=== PATIENT | male | born 1950 | race Caucasian/White ===

== ENCOUNTER 2017-04-19 13:20 | Emergency (ER) | payer OTHER, BC ==
[~2017-04-19] VITALS: Ht 180.3 cm; Wt 119.1 kg
[~2017-04-19 13:20] MED LIST: ASPEC325 PO; ATEN-173 PO; CRS20 PO; FLNIN NAE; PRLSR20 PO; [UNRECOGNIZED DRUG - CODE] PO
[2017-04-19 13:29] VITALS: TEMP 39.1
[2017-04-19] MEDS ORDERED: ROSU40TA PO (14:00)
[2017-04-19] MEDS ORDERED: PRLSR20 PO (14:00)
[2017-04-19] MEDS ORDERED: HYDR25TA4 PO (14:00)
[2017-04-19] MEDS ORDERED: ATEN-173 PO (14:00)
[2017-04-19] MEDS ORDERED: LOSA1TAB PO (14:00)
[2017-04-19 14:43] LABS: BASO % 0.2 %; BASO ABS # 0.02 K/uL (0-0.2); COMPLETE YES; EOS % 0.6 %; HEMATOCRIT 40.2 % (42-52); IG% 0.5 %; LYMPH % 13.3 %; LYMPH ABS # 1.07 K/uL (1.2-3.4); MEAN CELL VOLUME 86.8 fL (80-100); MEAN CORPUSCULAR HGB CONC 34.6 g/dl (32-36); MEAN PLATELET VOLUME 11.3 fL (7.4-10.4); MONO % 10.9 %; NEUT % 74.5 %; PLATELET COUNT 134 K/uL (130-400); RED BLOOD COUNT 4.63 M/uL (4.7-6.1); WHITE BLOOD COUNT 8.06 K/uL (4.8-10.8)
[2017-04-19 14:52] LABS: BUN/CREATININE RATIO 17.2 (10-20); CALCIUM 8.9 mg/dl (8.5-10.1); CREATININE 1.12 mg/dl (0.60-1.40); PARTIAL THROMBOPLASTIN RATIO 1.1; POTASSIUM 2.8 mmol/L (3.5-5.1); PROTHROMBIN TIME (PATIENT) 10.8 SECONDS (9.0-12.0)
[2017-04-19 14:54] LABS: ALB/GLOB RATIO 0.8 (0.9-2)
--- NOTE | 2017-04-19 14:58 | DIAGNOSTIC IMAGING REPORT ---
CHEST ONE VIEW PORTABLE CLINICAL HISTORY: Sepsis NAUSEA, FEVER. COMPARISON STUDY: 09/19/2010 FINDINGS: The heart is mildly enlarged. There are low lung volumes with bronchovascular crowding at the lung bases. There is no lobar consolidation. There is no overt failure. There are no pleural effusions.[ IMPRESSION: 1. Mild cardiomegaly 2. Poor inspiration with mild hypoventilatory changes the lung bases 3. No evidence of focal pulmonary consolidation Electronically signed by: Christian Vargas M.D. 04/19/2017 2:56 PM Dictated Date/Time: 04/19/2017 2:56 PM
[2017-04-19 15:04] VITALS: Ht 180.3 cm; Wt 119.1 kg
[2017-04-19 15:16] VITALS: O2SAT 96
--- NOTE | 2017-04-19 15:25 | EMERGENCY ROOM VISIT NOTE ---
History Report prepared by Duane: Eulogio Lindsey Under the Supervision of: Dr. Maeve Stewart D.O. First contact with patient: 14:02 Chief Complaint: FLU LIKE SX Stated Complaint: NAUSEA,FEVER,COLD SYMPTOMS History of Present Illness The patient is a 66 year old male who presents to the Emergency Room with complaints of a constant fever for the past week. The patient states that he thinks that he has the flu, and he has not gotten a flu shot. The patient states that he has been having slight difficulty breathing due to the sickness, he feels "delusional", and he has been nauseous and vomiting. The patient denies any difficulty urinating or abdominal pain. The patient has a history of heart disease, and he has a stent in place. Source of History: patient Onset: a week ago Position: other (global) Quality: other (fever) Timing: constant Associated Symptoms: + SOB, + nausea, + vomiting, No abdominal pain, No urinary symptoms Review of Systems See HPI for pertinent positives & negatives. A total of 10 systems reviewed and were otherwise negative. Past Medical & Surgical Medical Problems: (1) Heart disease (2) HTN (hypertension) Family History Patient reports no known family medical history. Social History Smoking Status: Former Smoker Marital Status: Housing Status: lives with family Occupation Status: retired Current/Historical Medications Scheduled Atenolol (Tenormin), 25 MG PO BID Hydrochlorothiazide (Hctz), 25 MG PO DAILY Losartan Potassium (Cozaar), 25 MG PO DAILY Omeprazole (Prilosec), 20 MG PO DAILY Rosuvastatin Calcium (Crestor), 40 MG PO DAILY Allergies Coded Allergies: Fentanyl (Unverified Allergy, hives, swelling, 09/19/10) Physical Exam Vital Signs Date Time Temp Pulse Resp B/P (MAP) Pulse Ox O2 Delivery O2 Flow Rate FiO2 04/19/17 19:05 62 20 122/69 96 04/19/17 18:38 62 20 122/69 96 Room Air 04/19/17 18:00 61 16 112/70 97 Room Air 04/19/17 15:57 119/62 04/19/17 15:50 72 7 93 04/19/17 15:20 73 21 95 04/19/17 15:16 96 Room Air 04/19/17 14:50 78 10 04/19/17 14:20 75 13 04/19/17 13:56 79 04/19/17 13:29 39.1 87 20 121/71 93 Room Air Physical Exam HEENT: Head - normocephalic and atraumatic Pupils are equal, round, and reactive to light. Extraocular eye muscles are intact, and sclera are anicteric. Nose - moist nasal mucosa without discharge. Mouth - moist buccal mucosa. Oropharynx is nonerythematous and there is no tonsillar exudate or edema noted. Neck: Supple; no JVD, nuchal rigidity, cervical lymphadenopathy. Heart: Regular rate and rhythm. There is a normal S1 and S2 with no murmurs, clicks, or gallops appreciated. Lungs: Clear to auscultation bilaterally with no wheezes, rales, or rhonchi. Abdomen: Soft, completely nontender, nondistended, with good bowel sounds. There are no palpable pulsatile masses or hepatosplenomegaly. There is no guarding, rigidity, or rebound noted. Extremities: No evidence of cyanosis, clubbing, or edema. There are easily palpable peripheral pulses. Skin: Diaphoretic, warm with good turgor and no rashes. Medical Decision & Procedures ER Provider Diagnostic Interpretation: Radiology results as stated below per my review and the radiologist's interpretation: CHEST ONE VIEW PORTABLE CLINICAL HISTORY: Sepsis NAUSEA, FEVER. COMPARISON STUDY: 09/19/2010 FINDINGS: The heart is mildly enlarged. There are low lung volumes with bronchovascular crowding at the lung bases. There is no lobar consolidation. There is no overt failure. There are no pleural effusions.[ IMPRESSION: 1. Mild cardiomegaly 2. Poor inspiration with mild hypoventilatory changes the lung bases 3. No evidence of focal pulmonary consolidation Electronically signed by: Christian Vargas M.D. 04/19/2017 2:56 PM Dictated Date/Time: 04/19/2017 2:56 PM Laboratory Results 04/19/17 13:45 Red Blood Count 4.63, Mean Corpuscular Volume 86.8, Mean Corpuscular Hemoglobin 30.0, Mean Corpuscular Hemoglobin Concent 34.6, Mean Platelet Volume 11.3, Neutrophils (%) (Auto) 74.5, Lymphocytes (%) (Auto) 13.3, Monocytes (%) (Auto) 10.9, Eosinophils (%) (Auto) 0.6, Basophils (%) (Auto) 0.2, Neutrophils # (Auto ) 6.00, Lymphocytes # (Auto) 1.07, Monocytes # (Auto) 0.88, Eosinophils # (Auto ) 0.05, Basophils # (Auto) 0.02 04/19/17 13:45 Test 04/19/17 13:45 04/19/17 14:45 04/19/17 14:50 04/19/17 16:40 White Blood Count 8.06 K/uL (4.8-10.8) Red Blood Count 4.63 M/uL (4.7-6.1) Hemoglobin 13.9 g/dL (14.0-18.0) Hematocrit 40.2 % (42-52) Mean Corpuscular Volume 86.8 fL (80-100) Mean Corpuscular Hemoglobin 30.0 pg (25-34) Mean Corpuscular Hemoglobin Concent 34.6 g/dl (32-36) Platelet Count 134 K/uL (130-400) Mean Platelet Volume 11.3 fL (7.4-10.4) Neutrophils (%) (Auto) 74.5 % Lymphocytes (%) (Auto) 13.3 % Monocytes (%) (Auto) 10.9 % Eosinophils (%) (Auto) 0.6 % Basophils (%) (Auto) 0.2 % Neutrophils # (Auto) 6.00 K/uL (1.4-6.5) Lymphocytes # (Auto) 1.07 K/uL (1.2-3.4) Monocytes # (Auto) 0.88 K/uL (0.11-0.59) Eosinophils # (Auto) 0.05 K/uL (0-0.5) Basophils # (Auto) 0.02 K/uL (0-0.2) RDW Standard Deviation 40.2 fL (36.4-46.3) RDW Coefficient of Variation 12.6 % (11.5-14.5) Immature Granulocyte % (Auto) 0.5 % Immature Granulocyte # (Auto) 0.04 K/uL (0.00-0.02) Prothrombin Time 10.8 SECONDS (9.0-12.0) Prothromb Time International Ratio 1.0 (0.9-1.1) Activated Partial Thromboplast Time 27.7 SECONDS (21.0-31.0) Partial Thromboplastin Ratio 1.1 Anion Gap 6.0 mmol/L (3-11) Est Creatinine Clear Calc Drug Dose 84.0 ml/min Estimated GFR () 78.4 Estimated GFR (Non- 67.6 BUN/Creatinine Ratio 17.2 (10-20) Calcium Level 8.9 mg/dl (8.5-10.1) Total Bilirubin 0.6 mg/dl (0.2-1) Aspartate Amino Transf (AST/SGOT) 44 U/L (15-37) Alanine Aminotransferase (ALT/SGPT) 62 U/L (12-78) Alkaline Phosphatase 94 U/L (45-117) Troponin I 0.034 ng/ml (0-0.045) Total Protein 7.1 gm/dl (6.4-8.2) Albumin 3.2 gm/dl (3.4-5.0) Globulin 3.9 gm/dl (2.5-4.0) Albumin/Globulin Ratio 0.8 (0.9-2) Influenza Type A Antigen Neg for Influ A (NEG) Influenza Type B Antigen Neg for Influ B (NEG) Bedside Lactic Acid Venous 0.74 mmol/L (0.90-1.70) Urine Color DK YELLOW Urine Appearance CLEAR (CLEAR) Urine pH 6.0 (4.5-7.5) Urine Specific [place] 1.019 (1.000-1.030) Urine Protein 1+ (NEG) Urine Glucose (UA) NEG (NEG) Urine Ketones TRACE (NEG) Urine Occult Blood NEG (NEG) Urine Nitrite NEG (NEG) Urine Bilirubin NEG (NEG) Urine Urobilinogen NEG (NEG) Urine Leukocyte Esterase TRACE (NEG) Urine WBC (Auto) 1-5 /hpf (0-5) Urine RBC (Auto) 0-4 /hpf (0-4) Urine Hyaline Casts (Auto) 1-5 /lpf (0-5) Urine Epithelial Cells (Auto) >30 /lpf (0-5) Urine Bacteria (Auto) NEG (NEG) Urine Renal Epithelial Cells /lpf (0-5) Urine Mucus PRESENT (NONE PRSENT) Laboratory results per my review. Medications Administered Medications (Trade) Dose Ordered Sig/Sergio Route Start Time Stop Time Status Last Admin Dose Admin Acetaminophen (Tylenol Tab) 1,000 mg NOW STAT PO 12/24/17 15:51 04/19/17 15:56 DC 04/19/17 15:58 1,000 MG Sodium Chloride 1,000 ml @ 999 mls/hr Q1H1M STAT IV 04/19/17 17:24 04/19/17 18:24 DC 04/19/17 17:38 999 MLS/HR Potassium Chloride 10 meq/ Prmx 100 ml @ 100 mls/hr ONE ONCE IV 04/19/17 17:45 04/19/17 18:44 DC 04/19/17 18:00 100 MLS/HR Procedure Ordered: Tylenol, Sodium Chloride, Potassium Chloride IV ECG Indication: other (fever) Rate (beats per minute): 72 Rhythm: normal sinus Findings: no acute ischemic change, no ectopy ED Course 1402: Past medical records reviewed. The patient was evaluated in room B8. A complete history and physical exam was performed. A septic protocol was performed. 1551: Tylenol 1000mg PO 1711: I reevaluated the patient and had a long conversation and went over everything. He is feeling much better, but he is going to get IV potassium. 1724: Sodium Chloride 1000 ml @ 999 mls/hr IV. 1745: Potassium Chloride 10 meq/Prmx 100ml @ 100mls/hr IV 1809: Upon reevaluation, the patient is doing better and drinking. I discussed findings and results with him. He verbalized agreement of the treatment plan. He was discharged home. Medical Decision The patient is a 66 year old male who presents to the ED with a fever. Differential diagnosis includes influenza, pneumonia, and sepsis Lab results: Influenza negative, white count 8.0, stable H&H, urinalysis showed trace ketone, trace leukocyte esterase and mucous, lactic acid 0.7, potassium 2.8, sodium 134, BUN 19, and creatinine 1.1, LFTs are normal. This is a 66-year-old male patient presents to the emergency department with a one-week history of fever and not feeling well. The patient has no significant leukocytosis. He has negative lactic acid. Flu testing was negative. There was no other focal infectious finding. I believe the patient may have had influenza but the rapid testing was negative as he's had these symptoms for more than one week. Patient was noted to have a low potassium. This was replaced with IV Shlomo. The patient was feeling much better after receiving IV fluids and the potassium. Encouraged the patient to rest and keep himself well- hydrated. He will follow-up with his PCP on Thursday after the holiday. He can return here to the emergency department if he develops any worsening symptoms. Medication Reconcilliation Current Medication List: was personally reviewed by me Blood Pressure Screening Patient's blood pressure: Normal blood pressure Impression Primary Impression: Fever Additional Impression: Hypokalemia Scribe Attestation The scribe's documentation has been prepared under my direction and personally reviewed by me in its entirety. I confirm that the note above accurately reflects all work, treatment, procedures, and medical decision making performed by me. Departure Information Dispostion Home / Self-Care Referrals Manuel Schuler III, M.D. (PCP) Forms HOME CARE DOCUMENTATION FORM, IMPORTANT VISIT INFORMATION Patient Instructions ED Fever Unconf Cause, Hypokalemia Dc, [facility] Additional Instructions Rest. Take foods high in potassium Take plenty of clear liquids Problem Qualifiers Primary Impression: Fever Fever type: unspecified Qualified Codes: R50.9 - Fever, unspecified
[2017-04-19] MEDS ORDERED: ACETAMINOPHEN 500 MG TAB PO STA (15:51)
[2017-04-19 17:04] LABS: URINE APPEARANCE CLEAR (CLEAR); URINE BILIRUBIN NEG (NEG); URINE COLOR DK YELLOW; URINE EPITHELIAL CELL AUTO >30 /lpf (0-5); URINE NITRITE NEG (NEG); URINE SPECIFIC GRAVITY 1.019 (1.000-1.030); UROBILINOGEN NEG (NEG); ZZUR CULT IF INDIC CLEAN CATCH NO
[2017-04-19 17:10] LABS: MANUAL MICROSCOPIC REQUIRED? NO; REVIEW REQ? YES
[2017-04-19 17:23] LABS: URINE MUCUS PRESENT (NONE PRSENT)
[2017-04-19] MEDS ORDERED: SODIUM CHLORIDE 0.9% 1000ML 1,000 ML IV STA (17:24)
[2017-04-19] MEDS ORDERED: POTASSIUM CHLORIDE 10 MEQ / 100ML WTR IV STA (17:24)
[2017-04-19] MEDS ORDERED: POTASSIUM CHLR 10MEQ / WTR IV ONE (17:45)
[2017-04-19 19:05] VITALS: BP 122/69; PULSE 62; O2SAT 96
== END 2017-04-19 19:06 | disposition home or self-care (01) ==
LOC: C.EDB 13:22
DX: R50.9 Fever, unspecified (principal); E87.6 Hypokalemia; I10 Essential (primary) hypertension; Z95.5 Presence of coronary angioplasty implant and graft; Z87.891 Personal history of nicotine dependence; R06.02 Shortness of breath

== ENCOUNTER 2020-11-11 21:16 | Inpatient (IN) ==
--- NOTE | 2020-11-11 23:18 | Emergency Department Note ---
Impression & Plan Pleural effusion on left, SOB (shortness of breath), Failure of outpatient treatment ED Provider Note Name: ORA PRIETO Age: 69 Sex: M Arrives Via: Walk-In Informant: Patient, Family ED Provider: Camacho Mckeon MD Chief Complaint: Shortness of breath Impression: See Above Medical Decision Makin yr old male with history HTN, CAD, HLP, GERD who has had 10 day history shortness of breath. CTA initially unremarkable and then CTA just a few days ago with moderate left pleural effusion. He is quite dyspneic on arrival but much improved with NC O2. Exam with minimal lung sounds on left. He does not appear septic and sats are good. No tracheal deviation noted. CXR with large left pleural effusion vastly increased from previous. Labs with mild wbc elevation. Normal other labs and findings. He was started on Zosyn as I suspect this is infectious given how rapid onset it has developed. He has no evidence dissection on either CTA thus far done and I would think repeat of minimal clinical use at this time. Already tried azithro/doxy without improvement. No leg swelling nor other evidence of overt CHF. Mild LFT elevation uncertain etiology though no TTP RUQ nor significant abodminal pain. Prior Medical Record and Triage/Nursing Notes reviewed by Me Additional history obtained from chart and EPIC record Differentials:Reactive airway disease, pneumonia, pneumothorax, COPD, CHF, infections, cardiac ischemia, pulmonary embolism, musculoskeletal, gastrointestinal, as well as other pathologies. Vital Signs: reviewed and remarkable for no significant abnormalities Interventions: saline lock, zosyn IV Labs:Reviewed and remarkable for mild wbc elevation, mild lft elevations Imaging:X ray results are stated below per my interpretation: Chest: 1 view: Large left pleural effusion new EKG:Per My Interpretation: Indication SHOB: NSR 92 bpm, qtc 477 with RBBB similar to previous. No Ectopy. No Ischemia. Compared to EKG 11/04/20, no significant changes. Cardiac/Tele Monitoring: Cardiac Monitoring: An Order was placed for continuous cardiac monitoring. The monitor shows a rate of 90 with a normal sinus rhythm. Consults:Dr Glen Mirza Hospitalist Plan: Disposition:Hospitalization. Referred to: PCP Condition: Good History of Present Illness:69 yr old male arrives for evaluation of shortness of breath. Patient notes 10 days worsening breathing difficulty. Notes he just can't catch his breath. Associated with weakness and mild cough. Pain with deep inspiration in left lower chest. He has been on Azithro and Doxy without improvement. CTA Chest x 2 over the last week have revealed increasing left pleural effusion. He did have CT abdomen/pelvis last week with no specific findings. CXR last week revealed possible LLL infiltrate vs atelectasis. He notes significant ESPINOSA and increasing chest pain with walking. Better with rest and laying down. Over the last few days he notes some fullness in his abdomen. He has had decreased appetite over the last few. No fevers, chills, syncope, headache, neck pain, rashes, leg swelling, calf pain, urinary/bowel changes, neuro deficits, nausea, vomiting nor other symptoms. No history of similar. No trauma/injuries nor falls. ROS: See above HPI for pertinent positives & negatives. A total of 10 systems r eviewed and were otherwise negative. Past Medical History:HTN, CAD, HLP, GERD Past Surgical History:Appendectomy Family History:Non contributory Social History:, retired, smoker Home Medications:Amlodipine, ASA, Atenolol, Baclofen, soma, d3, q10, losartan, omeprazole, rosuvastatin Allergies:Fentanyl Vitals:Blood Pressure: 174/99, Pulse 98, RR 19, T 36.9C, O2 92% on NC Physical Exam: GENERAL: Patient is uncomfortable appearing and in mild distress. EYES: No scleral icterus, unremarkable pupils. ENT: Mucous membranes moist, no nasal congestion. NECK: No masses appreciated, nomeningismus, trachea is midline. RESPIRATORY: ++ dyspnea/tachypnea. Decreased breath sounds throughout left lower lung [place]. No wheeze, no rhonchi. CARDIOVASCULAR: Regular rate and rhythm.No murmurs, rubs, gallops appreciated. GASTROINTESTINAL: Abdomen soft, non-tender, no peritonitis.Bowel sounds positive.No masses appreciated. BACK: No midline tenderness, no CVA tenderness EXTREMITIES: Normal motion all extremities, no cyanosis, no edema. NEUROLOGIC: Alert and oriented, no acute motor or sensory deficits, no focal weakness, cranial nerves grossly intact. SKIN: No rash, no jaundice, no diaphoresis. PSYCH: Appropriate GCS: 15 ED Course: Times/Reassessments: Breathing comfortably no distress and stating feeling quite well while on NC O2. 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 Beliefs That Will Affect Care: None Current Living Situation: Spouse Other Information That Helps Us Care for You: Yes Feels Safe at Home: Yes Safety Concerns: Feels Safe At This Time Assistive Devices: None Allergies Allergies Allergy/AdvReac Type Severity Reaction Status Date / Time fentanyl Allergy hives, Unverified 11/04/20 16:18 swelling Home Meds Home Medications Medication Instructions Recorded Confirmed amlodipine 5 mg tablet 5 mg PO QAM 11/01/20 11/12/20 aspirin 81 mg tablet,delayed 81 mg PO QAM 11/01/20 11/12/20 release atenolol 25 mg tablet 25 mg PO BID 11/01/20 11/12/20 cholecalciferol (vitamin D3) 25 25 mcg PO QAM 11/01/20 11/12/20 mcg (1,000 unit) tablet (Vitamin D3) coenzyme Q10 100 mg capsule 100 mg PO QAM 11/01/20 11/12/20 (CoQ-10) glucosamine-chondroitin 250 mg-200 2 tab PO QAM 11/01/20 11/12/20 mg tablet (Osteo Bi-Flex) ibuprofen 200 mg tablet 600 mg PO Q6H PRN 11/01/20 11/12/20 losartan 50 mg tablet 50 mg PO BID 11/01/20 11/12/20 omeprazole 20 mg capsule,delayed 20 mg PO QAM 11/01/20 11/12/20 release rosuvastatin 40 mg tablet 20 mg PO QAM 11/01/20 11/12/20 Previous Rx's Medication Instructions Recorded carisoprodol 250 mg tablet (Soma) 250 mg PO QID PRN #14 tab 11/04/20 Results & Data (ED) Vital Signs Vital Signs - 24 hr 11/11/20 21:48 11/11/20 21:51 11/11/20 22:54 Temperature 36.9 C Temperature Source Temporal Artery Scan Pulse Rate 98 H Respiratory Rate 19 Respiratory Effort / Characteristics Labored Respiratory Depth Normal Respiratory Pattern Regular Blood Pressure 174/99 H Blood Pressure Mean 124 Pulse Oximetry 96 92 Pulse Oximetry [Left Index Finger] 98 Oxygen Delivery Method Room Air Nasal Cannula Oxygen Delivery Method [Left Index Finger] Nasal Cannula Oxygen Flow Rate [Left Index Finger] 3 Sepsis Recent Fever Within 48 Hours No Sepsis New/Unexplained Change in Mental Status N/A Sepsis Action Taken by Nursing No Action Required Oxygen Flow Rate - Titration 3 Pulse Oximetry Post Tiitration 94 11/12/20 00:14 11/12/20 00:30 Temperature Temperature Source Pulse Rate 83 85 Respiratory Rate 22 24 Respiratory Effort / Characteristics Respiratory Depth Respiratory Pattern Blood Pressure 176/98 H 178/99 H Blood Pressure Mean 124 125 Pulse Oximetry 97 97 Pulse Oximetry [Left Index Finger] Oxygen Delivery Method Oxygen Delivery Method [Left Index Finger] Oxygen Flow Rate [Left Index Finger] Sepsis Recent Fever Within 48 Hours Sepsis New/Unexplained Change in Mental Status Sepsis Action Taken by Nursing Oxygen Flow Rate - Titration Pulse Oximetry Post Tiitration Laboratory Data Result diagrams: 11/12/20 05:41 11/11/20 22:50 Lab Results 11/11/20 11/11/20 11/11/20 Range/Units 22:50 22:50 23:37 WBC 12.11 H (4.8-10.8) K/uL RBC 4.17 L (4.7-6.1) M/uL Hgb 12.7 L (14.0-18.0) g/dL Hct 36.9 L (42-52) % MCV 88.5 (80-100) fL MCH 30.5 (25-34) pg MCHC 34.4 (32-36) g/dL RDW Std Deviation 46.8 H (36.4-46.3) fL RDW Coeff of Cristiano 14.3 (11.5-14.5) % Plt Count 334 (130-400) K/uL MPV 10.2 (7.4-10.4) fL Immature Gran % (Auto) 1.5 % Neut % (Auto) 76.2 % Lymph % (Auto) 11.1 % [place] % (Auto) 9.8 % Eos % (Auto) 1.2 % Baso % (Auto) 0.2 % Neut # (Auto) 9.22 H (1.4-6.5) K/uL Lymph # (Auto) 1.34 (1.2-3.4) K/uL [place] # (Auto) 1.19 H (0.11-0.59) K/uL Eos # (Auto) 0.15 (0-0.5) K/uL Baso # (Auto) 0.03 (0-0.2) K/uL Immature Gran # (Auto) 0.18 H (0.00-0.02) K/uL PT (9.0-12.0) Seconds INR (0.9-1.1) VBG pH (7.36-7.41) VBG pCO2 (38-50) mmHg VBG pO2 mmHg VBG HCO3 mmol/L VBG O2 Saturation % VBG Base Excess mEq/L Barometric Pressure mm/Hg Sodium 138 (136-145) mmol/L Potassium 3.2 L (3.5-5.1) mmol/L Chloride 102 (98-107) mmol/L Carbon Dioxide 27 (21-32) mmol/L Anion Gap 9.0 (3-11) BUN 11 (7-18) mg/dl Creatinine 0.81 (0.6-1.4) mg/dl Est Cr Clr Drug Dosing Not Reportable Est GFR ( Amer) 104.4 ml/min Est GFR (Non-Af Amer) 90.0 ml/min BUN/Creatinine Ratio 14.0 (10-20) Glucose 124 H (70-99) mg/dl Lactate 1.1 (0.4-2.0) mmol/L Calcium 8.6 (8.5-10.1) mg/dl Magnesium 1.9 (1.8-2.4) mg/dl Total Bilirubin 0.6 (0.2-1) mg/dl Direct Bilirubin 0.2 (0-0.2) mg/dl AST 83 H (15-37) U/L ALT 111 H (12-78) U/L Alkaline Phosphatase 262 H (45-117) U/L Troponin I 0.030 (0-0.045) ng/ml NT-Pro-B Natriuret Pep 248 (0-900) pg/ml Total Protein 7.0 (6.4-8.2) gm/dl Albumin 2.0 L (3.4-5.0) gm/dl Lipase 132 (73-393) U/L COVID-19 Eval Order SARS-CoV-2 (PCR) (Negative) 11/11/20 11/11/20 11/11/20 Range/Units 23:37 23:45 23:56 WBC (4.8-10.8) K/uL RBC (4.7-6.1) M/uL Hgb (14.0-18.0) g/dL Hct (42-52) % MCV (80-100) fL MCH (25-34) pg MCHC (32-36) g/dL RDW Std Deviation (36.4-46.3) fL RDW Coeff of Cristiano (11.5-14.5) % Plt Count (130-400) K/uL MPV (7.4-10.4) fL Immature Gran % (Auto) % Neut % (Auto) % Lymph % (Auto) % [place] % (Auto) % Eos % (Auto) % Baso % (Auto) % Neut # (Auto) (1.4-6.5) K/uL Lymph # (Auto) (1.2-3.4) K/uL [place] # (Auto) (0.11-0.59) K/uL Eos # (Auto) (0-0.5) K/uL Baso # (Auto) (0-0.2) K/uL Immature Gran # (Auto) (0.00-0.02) K/uL PT 11.2 (9.0-12.0) Seconds INR 1.1 (0.9-1.1) VBG pH 7.43 H (7.36-7.41) VBG pCO2 42 (38-50) mmHg VBG pO2 30 mmHg VBG HCO3 27 mmol/L VBG O2 Saturation < 60.0 % VBG Base Excess 2.7 mEq/L Barometric Pressure 734.3 mm/Hg Sodium (136-145) mmol/L Potassium (3.5-5.1) mmol/L Chloride (98-107) mmol/L Carbon Dioxide (21-32) mmol/L Anion Gap (3-11) BUN (7-18) mg/dl Creatinine (0.6-1.4) mg/dl Est Cr Clr Drug Dosing Est GFR ( Amer) ml/min Est GFR (Non-Af Amer) ml/min BUN/Creatinine Ratio (10-20) Glucose (70-99) mg/dl Lactate (0.4-2.0) mmol/L Calcium (8.5-10.1) mg/dl Magnesium (1.8-2.4) mg/dl Total Bilirubin (0.2-1) mg/dl Direct Bilirubin (0-0.2) mg/dl AST (15-37) U/L ALT (12-78) U/L Alkaline Phosphatase (45-117) U/L Troponin I (0-0.045) ng/ml NT-Pro-B Natriuret Pep (0-900) pg/ml Total Protein (6.4-8.2) gm/dl Albumin (3.4-5.0) gm/dl Lipase (73-393) U/L COVID-19 Eval Order Covid19 at [facility] SARS-CoV-2 (PCR) (Negative) 11/11/20 Range/Units 23:56 WBC (4.8-10.8) K/uL RBC (4.7-6.1) M/uL Hgb (14.0-18.0) g/dL Hct (42-52) % MCV (80-100) fL MCH (25-34) pg MCHC (32-36) g/dL RDW Std Deviation (36.4-46.3) fL RDW Coeff of Cristiano (11.5-14.5) % Plt Count (130-400) K/uL MPV (7.4-10.4) fL Immature Gran % (Auto) % Neut % (Auto) % Lymph % (Auto) % [place] % (Auto) % Eos % (Auto) % Baso % (Auto) % Neut # (Auto) (1.4-6.5) K/uL Lymph # (Auto) (1.2-3.4) K/uL [place] # (Auto) (0.11-0.59) K/uL Eos # (Auto) (0-0.5) K/uL Baso # (Auto) (0-0.2) K/uL Immature Gran # (Auto) (0.00-0.02) K/uL PT (9.0-12.0) Seconds INR (0.9-1.1) VBG pH (7.36-7.41) VBG pCO2 (38-50) mmHg VBG pO2 mmHg VBG HCO3 mmol/L VBG O2 Saturation % VBG Base Excess mEq/L Barometric Pressure mm/Hg Sodium (136-145) mmol/L Potassium (3.5-5.1) mmol/L Chloride (98-107) mmol/L Carbon Dioxide (21-32) mmol/L Anion Gap (3-11) BUN (7-18) mg/dl Creatinine (0.6-1.4) mg/dl Est Cr Clr Drug Dosing Est GFR ( Amer) ml/min Est GFR (Non-Af Amer) ml/min BUN/Creatinine Ratio (10-20) Glucose (70-99) mg/dl Lactate (0.4-2.0) mmol/L Calcium (8.5-10.1) mg/dl Magnesium (1.8-2.4) mg/dl Total Bilirubin (0.2-1) mg/dl Direct Bilirubin (0-0.2) mg/dl AST (15-37) U/L ALT (12-78) U/L Alkaline Phosphatase (45-117) U/L Troponin I (0-0.045) ng/ml NT-Pro-B Natriuret Pep (0-900) pg/ml Total Protein (6.4-8.2) gm/dl Albumin (3.4-5.0) gm/dl Lipase (73-393) U/L COVID-19 Eval Order SARS-CoV-2 (PCR) NEGATIVE (Negative) Administered Medications Discontinued Medications Piperacillin Sod/Tazobactam Sod (Zosyn) 4.5 gm in 120 mls @ 240 mls/hr IV NOW ONE Stop: 11/12/20 00:29 Last Infusion: 11/12/20 01:01 Dose: 0 mls/hr Documented by: [id number] Admin: 11/12/20 00:22 Dose: 240 mls/hr Documented by: [id number] Discharge Plan Visit Data Chief Complaint: Shortness of Breath/Dyspnea Stated Complaint: SHORTNESS OF BREATH ED Provider: Camacho Mckeon Discharge Problem: Pleural effusion on left, SOB (shortness of breath), Failure of outpatient treatment Patient Disposition: Admitted As Inpatient Discharge Instructions Interventions: ED Discharge Assessment Last Done: 11/12/20 02:51
[2020-11-11 23:30] LABS: Basophils # (auto) 0.03 K/uL (0-0.2); Basophils % (auto) 0.2 %; Eosinophils # (auto) 0.15 K/uL (0-0.5); Eosinophils % (auto) 1.2 %; Hematocrit (blood only) 36.9 % (42-52); Hemoglobin 12.7 g/dL (14.0-18.0); Immature Granulocytes # (auto) 0.18 K/uL (0.00-0.02); Immature Granulocytes % (auto) 1.5 %; Lymphocytes # (auto) 1.34 K/uL (1.2-3.4); Lymphocytes % (auto) 11.1 %; Mean Corpuscular Hemoglobin 30.5 pg (25-34); Mean Corpuscular Hgb Conc 34.4 g/dL (32-36); Mean Corpuscular Volume 88.5 fL (80-100); Mean Platelet Volume 10.2 fL (7.4-10.4); Monocytes # (auto) 1.19 K/uL (0.11-0.59); Monocytes % (auto) 9.8 %; Neutrophils # (auto) 9.22 K/uL (1.4-6.5); Neutrophils % (auto) 76.2 %; Platelet Count 334 K/uL (130-400); RDW Coefficient of Variation 14.3 % (11.5-14.5); RDW Standard Deviation 46.8 fL (36.4-46.3); Red Blood Count 4.17 M/uL (4.7-6.1); White Blood Count 12.11 K/uL (4.8-10.8)
[2020-11-11 23:38] LABS: Alanine Aminotransferase 111 U/L (12-78); Aspartate Aminotransferase 83 U/L (15-37); Bilirubin Direct 0.2 mg/dl (0-0.2); Blood Urea Nitrogen 11 mg/dl (7-18); Calcium 8.6 mg/dl (8.5-10.1); Carbon Dioxide 27 mmol/L (21-32); Chloride 102 mmol/L (98-107); Est GFR (African American) 104.4 ml/min; Glucose 124 mg/dl (70-99); Lipase 132 U/L (73-393); Magnesium 1.9 mg/dl (1.8-2.4); Potassium 3.2 mmol/L (3.5-5.1); Sodium 138 mmol/L (136-145)
[2020-11-11 23:43] LABS: Alkaline Phosphatase 262 U/L (45-117); Bilirubin,Total 0.6 mg/dl (0.2-1); NT Pro B Type Natriuretic Pept 248 pg/ml (0-900)
[2020-11-11 23:56] LABS: INR 1.1 (0.9-1.1); Prothrombin Time 11.2 Seconds (9.0-12.0)
[2020-11-12] MEDS ORDERED: PIPERACILLIN/TAZOBACTAM 4.5 GM/120 ML BAG IV ONE
[2020-11-12] MEDS ORDERED: PIPERACILL/TAZOBAC CONSULT ACTIVE PRN
[2020-11-12 00:02] LABS: Base Excess VBG 2.7 mEq/L; HCO3 VBG 27 mmol/L; PCO2 VBG 42 mmHg (38-50); PO2 VBG 30 mmHg; pH VBG 7.43 (7.36-7.41)
[2020-11-12 00:06] LABS: Oxygen Saturation VBG < 60.0 %
--- NOTE | 2020-11-12 03:00 | History and Physical Report ---
DATE OF ADMISSION: 11/11/2020. CHIEF COMPLAINT: Shortness of breath. HISTORY OF PRESENT ILLNESS: This 69-year-old male with past medical history significant for CAD, status post stent, hypertension, morbid obesity, osteoarthritis, hyperlipidemia, obstructive sleep apnea, GERD, presents with shortness of breath. The patient has been to the ER couple of times. This is the third time he is in the ER. He had CTA of the chest and CT abdomen and pelvis done on 11/01/[address] angiogram of abdominal aorta and its branches, 6 mm pleural based nodule is noted in the right lung base and he was otherwise unremarkable. A chest x-ray done on 11/04/2020 showing small left pleural effusion, progressively worsening left lung base opacities suggestive of atelectasis versus pneumonia .And he followed up with PCP. He had a CT angiogram was done on 11/07/2020 as out patient. Again there was no PE, but showing moderate left pleural effusion with loculations. A few loculations demonstrated higher than fluid attenuation concerning for debris, mildly enlarged thoracic lymph nodes, a few lung nodules measuring up to 7 mm was documented. The patient had a course of Z-JORDY, currently on doxycycline. Today, he has a small temperature spike and his shortness of breath is not getting better. That is the reason he came to the ER. He also has chest pain. Chest pain is more with deep breath.He is coughing, once in a while brings up whitish phlegm. No headache, no blurred visions, no earache, no runny nose, no sore throat, no nausea, no abdominal pain. Appetite is down, because of feeling of bloating of the stomach, but currently he is feeling somewhat hungry. Normal bowel and bladder movements. Ambulating okay. Currently hemodynamically stable. ALLERGIES: FENTANYL. PAST MEDICAL HISTORY: As mentioned above. PAST SURGICAL HISTORY: Balloon angioplasty, left heart catheterization, removal of ruptured appendix. MEDICATIONS: The patient is on amlodipine 5 mg p.o. daily, aspirin 81 mg p.o. daily, atenolol 25 mg p.o. b.i.d., Soma 250 mg p.o. q.i.d. p.r.n., vitamin D 25 mcg p.o. a.m., Coenzyme Q10 100 mg p.o. a.m., glucosamine chondroitin 2 tablets p.o. a.m., ibuprofen 600 mg p.o. q. 6 hours p.r.n., losartan 50 mg p.o. b.i.d., omeprazole 20 mg p.o. a.m., atorvastatin 20 mg p.o. a.m. FAMILY HISTORY: Significant for son has asthma, father has stroke. SOCIAL HISTORY: , former smoker, quit in 1977. Smoked 2 packs a day for 12 years. No alcohol use. No drug use. REVIEW OF SYSTEMS: As per HPI. Rest of the review of systems is negative. PHYSICAL EXAMINATION: GENERAL: The patient is of moderate build, not in acute distress. VITAL SIGNS: Temperature 36.9, pulse 85, respiratory rate 24, blood pressure 178/99, oxygen 97% on nasal cannula. HEENT: Pupils equal, round and reactive to light. Oral mucosa moist. NECK: No JVD, no neck masses. HEART: S1 and S2 heard. Regular rate and rhythm. No murmur, no gallop. RESPIRATORY SYSTEM: Normal AP diameter. No accessory muscle use. No wheezing, no crackles. Diminished breath sounds in the left lung base. ABDOMEN: Soft, bowel sounds present, nontender, no distention. CENTRAL NERVOUS SYSTEM: Cranial nerves II-XII grossly intact, nonfocal. EXTREMITIES: No edema, no erythema. LABORATORY DATA: WBC 12.1, hemoglobin 12.7, hematocrit 36.9, platelets 334. PT 11.2, INR 1.1. ABGs, venous blood gas pH of 7.43, pCO2 of 42, pO2 of 30, bicarbonate 27. Sodium 138, potassium 3.2, chloride 102, bicarbonate 27, BUN 11, creatinine 0.8, serum glucose 124, lactate 1.4, calcium 8.6, magnesium 1.9, total bilirubin 0.6, direct bilirubin 0.2, AST 83, ALT 111, alkaline phosphatase 262. Troponin I 0.03. BNP 248. Lipase 132. SARS-CoV-2 PCR negative. EKG: Normal sinus rhythm, rate of 92. Right bundle-branch block, no significant changes seen. ASSESSMENT AND PLAN: This is a 69-year-old male presents with shortness of breath. 1. Shortness of breath, mild fever, left pleural effusion. Currently on doxy. We will continue doxy. Also ER started on IV zosyn which we will continue. Recently on 11/07/2020, outpatient CTA chest with no PE, but moderate left pleural effusion, possible debris. We will consult pulmonary in the a.m. for possible thoracocentesis and pleural fluid analysis. Monitor in the [facility] for now. Currently, hemodynamically stable. 2. CAD status post stent. Continue his home medication of aspirin, beta cathy, and statin. 3. Hypertension. Continue his home medication of losartan, atenolol, amlodipine. We will monitor his blood pressure. 4. Hyperlipidemia, on statin. 5. Morbid obesity: Needs counseling. 6. Obstructive sleep apnea. 7. Elevated lft. Will follow repat labs. If any concern will get liver US. 7. Deep venous thrombosis prophylaxis, heparin subcu. DISPOSITION: Closely monitor in the [employer] tele. PT/OT prior to discharge. Social service to help with discharge planning. Job ID: [id number] ROMAN
[2020-11-12] MEDS ORDERED: NITROGLYCERIN SL 0.4 MG/TAB TAB SL PRN (03:28)
[2020-11-12] MEDS ORDERED: ACETAMINOPHEN 325 MG TAB PO PRN (03:28)
[2020-11-12] MEDS ORDERED: POLYETHYLENE (MIRALAX) 17 GM PACK PO PRN (03:28)
[2020-11-12] MEDS ORDERED: ONDANSETRON INJ 2 MG/ML 2 ML VIAL IV PRN (03:28)
[2020-11-12 06:05] LABS: Basophils # (auto) 0.03 K/uL (0-0.2); Basophils % (auto) 0.3 %; Eosinophils % (auto) 1.7 %; Hematocrit (blood only) 36.7 % (42-52); Hemoglobin 12.2 g/dL (14.0-18.0); Immature Granulocytes # (auto) 0.14 K/uL (0.00-0.02); Immature Granulocytes % (auto) 1.2 %; Lymphocytes % (auto) 10.5 %; Mean Corpuscular Hgb Conc 33.2 g/dL (32-36); Mean Corpuscular Volume 90.4 fL (80-100); Mean Platelet Volume 10.2 fL (7.4-10.4); Monocytes # (auto) 1.32 K/uL (0.11-0.59); Monocytes % (auto) 11.5 %; Neutrophils # (auto) 8.59 K/uL (1.4-6.5); Neutrophils % (auto) 74.8 %; Platelet Count 329 K/uL (130-400); RDW Coefficient of Variation 14.2 % (11.5-14.5); RDW Standard Deviation 47.2 fL (36.4-46.3); Red Blood Count 4.06 M/uL (4.7-6.1); White Blood Count 11.48 K/uL (4.8-10.8)
[2020-11-12] MEDS: PATIENT'S WEIGHT NEEDED SCH ×2 (06:23→07:03)
[2020-11-12] MEDS: HEPARIN SOD 5,000 UNIT/0.5 ML VIAL SQ SCH ×2 (06:24→13:50)
[2020-11-12 06:55] LABS: Albumin Level 1.9 gm/dl (3.4-5.0); BUN Creatinine Ratio 14.4 (10-20); Bilirubin Direct 0.2 mg/dl (0-0.2); Calcium 8.6 mg/dl (8.5-10.1); Creatinine Clr Calc Pharmacy 126.6 ml/min; Est GFR (African American) 111.5 ml/min; Est GFR (Non-African American) 96.2 ml/min; Magnesium 1.9 mg/dl (1.8-2.4)
[2020-11-12 06:59] LABS: Bilirubin,Total 0.6 mg/dl (0.2-1); Total Protein 6.7 gm/dl (6.4-8.2); Troponin I 0.029 ng/ml (0-0.045)
[2020-11-12] MEDS ORDERED: POTASSIUM CHLORIDE CRTAB 20 MEQ TABCR PO STA (07:26)
--- NOTE | 2020-11-12 08:19 | XRay Report ---
SINGLE VIEW CHEST CLINICAL HISTORY: Left-sided chest pain. FINDINGS: An AP, portable, upright chest radiograph is compared to study dated 11/04/2020 and correlat ed with chest CT dated 11/01/2020. The examination is degraded by portable technique and apical lordoti c positioning. The heart is enlarged. The pulmonary vasculature is noncongested. There is a moderate left pleural effusion with atelectasis/consolidation of the left lower lung. The right lung appears c lear. No pneumothorax is seen. The skeletal structures are osteopenic. The bony thorax is grossly int act. IMPRESSION: 1. Cardiomegaly without radiographic evidence of congestive failure. 2. There is a moderate left pleural effusion with consolidation/atelectasis of the left lower lung. T his has significantly increased in size as compared to 11/04/2020. ACT 112: Negative or not required by law. Electronically signed by: Aj Nelson M.D. 11/12/2020 8:17 AM
[2020-11-12] MEDS: PIPERACILLIN/TAZOBACTAM 4.5 GM in DEXTROSE 5% 100 ML IV SCH ×2 (08:29→14:57)
[2020-11-12] MEDS: DOXYCYCLINE HYCLATE 100 MG CAP PO SCH ×2 (08:30→20:29)
[2020-11-12] MEDS: POTASSIUM CHLORIDE / WTR 10 MEQ/100 ML PLCT IV SCH ×2 (08:30→09:31)
[2020-11-12] MEDS: LOSARTAN POTASSIUM 50 MG TAB PO SCH ×2 (08:30→20:29)
[2020-11-12] MEDS: ATENOLOL 25 MG TABLET PO SCH ×2 (08:31→20:29)
--- NOTE | 2020-11-12 08:57 | Ultrasound Report ---
ULTRASOUND RIGHT UPPER QUADRANT ABDOMEN CLINICAL HISTORY: Elevated hepatic transaminases. COMPARISON STUDY: Abdominal CT dated 11/01/2020. TECHNIQUE: Real-time, grayscale, and color flow sonography of the right upper quadrant of the abdomen was performed. Images are reviewed in the transverse and longitudinal planes. FINDINGS: Liver: The liver is heterogeneous in echotexture noting nodularity of the surface contour. Increased echotexture suggesting steatosis. There is no intrahepatic biliary ductal dilatation. The main portal vein is patent. Gallbladder: The gallbladder is normal in appearance. No gallstones are identified. There is no gallb ladder wall thickening or pericholecystic fluid. A sonographic Candelario's sign is reportedly absent. Th e common bile duct measures up to 0.4 cm in diameter. Pancreas: Visualized portions of the pancreatic head and body are normal in appearance. Right kidney: Survey images of the right kidney demonstrate normal size and echotexture. There is no hydronephrosis. Ascites: None. IMPRESSION: 1. Heterogeneous liver with evidence of steatosis. Nodularity of the hepatic surface contour suggests early change of cirrhosis. 2. No gallstones are identified. ACT 112: Negative or not required by law. Electronically signed by: Aj Nelson M.D. 11/12/2020 8:55 AM
[2020-11-12] MEDS ORDERED: ASPIRIN 81 MG ECTAB PO SCH (09:00)
[2020-11-12] MEDS ORDERED: NON-FORMULARY MEDICATION (Coenzyme Q10 [Coq-10] 100 mg Capsule) PO SCH (09:00)
[2020-11-12] MEDS ORDERED: PANTOprazole 40 MG TAB PO SCH (09:00)
[2020-11-12] MEDS ORDERED: NON-FORMULARY MEDICATION (Glucosamine-Chondroitin [Osteo Bi-Flex] 250-200 mg Tablet) PO SCH (09:00)
[2020-11-12] MEDS ORDERED: CHOLECALCIFEROL 1,000 UNITS 25 MCG TAB PO SCH (09:00)
[2020-11-12] MEDS ORDERED: ROSUVASTATIN CALCIUM 20 MG TAB PO SCH (09:00)
[2020-11-12] MEDS ORDERED: amLODIPine BESYLATE 5 MG TAB PO SCH (09:00)
--- NOTE | 2020-11-12 13:22 | Electrocardiogram Report ---
Test Reason : Blood Pressure : / mmHG Vent. Rate : 092 BPM Atrial Rate : 092 BPM P-R Int : 164 ms QRS Dur : 148 ms QT Int : 386 ms P-R-T Axes : 036 043 011 degrees QTc Int : 477 ms Normal sinus rhythm Right bundle branch block Abnormal ECG When compared with ECG of 04-NOV-2020 15:06, No significant change was found Confirmed by Venkat Mann ([id number]) on 11/12/2020 1:22:29 PM Referred By: REFERRED SELF Confirmed By:Venkat Mann
--- NOTE | 2020-11-12 14:39 | Pulmonary Consultation ---
Date of Consultation November 12, 2020 Assessment & Plan (1) Pleural effusion, left: 69-year-old male with a history of coronary artery disease presenting with pleuritic left-sided pain and shortness of breath. Left-sided pleural effusion: Status post thoracentesis demonstrating evidence of exudative effusion concerning for possible empyema versus parapneumonic effusion. pH is 6.92. Will obtain a chest CT without contrast to evaluate for pleural thickening and possible atelectasis. Post thoracentesis ultrasound did not demonstrate any significant residual effusion. Post thoracentesis chest x- ray did demonstrate stable subpleural left lower lobe airspace opacity. Unclear whether this represents reaccumulation of fluid versus atelectasis. Echo ordered. Incentive spirometry and flutter valve ordered. Continue Zosyn therapy. MRSA screen is ordered. Thank you for the consultation. Pulmonary continue to follow with you. (2) SOB (shortness of breath): (3) Acute respiratory failure with hypoxia: History of Present Illness Reason for Consultation: Pleural effusion and shortness of breath Attending Physician: Alberto Casey MD History of Present Illness 69-year-old male who presented to the emergency department last night due to shortness of breath. He was in the ER last week as well on 11/04/2020. He was treated as an outpatient with a Z-Ho and doxycycline. He was admitted to the hospital by the hospitalist service for fever and left pleural effusion. He was started on IV Zosyn. Patient is accompanied by his daughter and . He notes that for the past week he has had a fever on and off. He notes that he has pain in his left chest especially on deep breathing. He denies any swelling in his lower extremities. He did previously have a history of [place] with stenting. 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 He smoked cigarettes roughly 30 to 40 years ago. Chest CTA from 11/01/2020 personally reviewed which demonstrated a 6 mm subpleural nodule within the right lower lobe. There were also focal nodular areas of peripheral consolidation within the lingula and left lower lobe favoring atelectasis or pneumonia. 3-month CT chest is recommended for follow-up. Small left pleural effusion and small hiatal hernia was seen. Chest x-ray from 11/11/2020 was personally reviewed as well indicating cardiomegaly, moderate left pleural effusion with consolidation. INR checked 11/11/2020 was 1.1. Platelet count 329,000. BUN 10. Allergies Allergy/AdvReac Type Severity Reaction Status Date / Time fentanyl Allergy hives, Unverified 11/04/20 16:18 swelling Home Medications Medication Instructions Recorded Confirmed Type amlodipine 5 mg tablet 5 mg PO QAM 11/01/20 11/12/20 History aspirin 81 mg tablet,delayed 81 mg PO QAM 11/01/20 11/12/20 History release atenolol 25 mg tablet 25 mg PO BID 11/01/20 11/12/20 History cholecalciferol (vitamin D3) 25 25 mcg PO QAM 11/01/20 11/12/20 History mcg (1,000 unit) tablet (Vitamin D3) coenzyme Q10 100 mg capsule 100 mg PO QAM 11/01/20 11/12/20 History (CoQ-10) glucosamine-chondroitin 250 mg-200 2 tab PO QAM 11/01/20 11/12/20 History mg tablet (Osteo Bi-Flex) ibuprofen 200 mg tablet 600 mg PO Q6H PRN 11/01/20 11/12/20 History losartan 50 mg tablet 50 mg PO BID 11/01/20 11/12/20 History omeprazole 20 mg capsule,delayed 20 mg PO QAM 11/01/20 11/12/20 History release rosuvastatin 40 mg tablet 20 mg PO QAM 11/01/20 11/12/20 History carisoprodol 250 mg tablet (Soma) 250 mg PO QID PRN #14 tab 11/04/20 11/12/20 Rx Patient History Medical History (Updated 11/12/20 @ 16:43 by Jonh Soni MD) Acute respiratory failure with hypoxia Pleural effusion, left Social History Smoking Status: Unknown if ever smoked Tobacco Type: Cigarettes and Pipe Second Hand Exposure: No; Do You Dip or Chew Tobacco: No; Tobacco Cessation Education Requested by Patient: No Hx Alcohol Use: No Hx Substance Use: No Preferred Language: Slovenian Communication Ability: Effective Beekeeper Required: Yes Beliefs That Will Affect Care: None Current Living Situation: Spouse Other Information That Helps Us Care for You: Yes Feels Safe at Home: Yes Safety Concerns: Feels Safe At This Time Assistive Devices: None Review of Systems Review of Systems: 02/07 point ROS negative unless noted elsewhere Physical Exam Constitutional: WD/WN, vitals as above Eyes: PERRL, conjunctivae normal, anicteric sclerae ENMT: external ear and nose normal, oropharynx normal Neck: trachea midline, no thyromegaly Respiratory: Diminished left lung sounds. Cardiovascular: RRR, no murmur, no edema Gastrointestinal (Abdomen): normal bowel sounds, soft, nontender, no hepatosplenomegaly Musculoskeletal: no cyanosis or clubbing, extremities motor strength 5/5 Skin: no rashes, warm and dry Neurologic: PERRL, EOMI, accommodation nl, no face palsy, no dysarthria Psychiatric: A+Ox3, euthymic affect Results & Data Results & Data ([facility]) Vital Signs (Past 12 Hours) Vital Signs Temp Pulse Resp BP BP Pulse Ox Pulse Ox 11/12/20 12:01 98.1 F 66 22 145/90 H 96 11/12/20 08:11 98.2 F 75 20 177/113 H 177/99 H 97 11/12/20 03:28 98.2 F 117 H 20 168/92 H 98 95 11/12/20 03:09 98.2 F 117 H 20 168/92 H 98 vital signs, labs and imaging reviewed, personally PG Care Time/CCT Total # of Minutes Spent Total Time Spent with Patient: Total time spent is greater than 50% in coordination of care (as documented) at patient's floor/unit and/or counseling patient: Coding Level of Care Code 96008 Inpt Consult Level 5 Diagnoses SOB (shortness of breath) R06.02 Pleural effusion, left J90 Acute respiratory failure with hypoxia J96.01
[2020-11-12] MEDS ORDERED: LIDOCAINE 1% LOCAL 20 ML VIAL ONE (15:53)
[2020-11-12 16:58] LABS: Appearance Pleural Fluid CLEAR; Color Pleural Fluid YELLOW; RBC Pleural Fluid (A) < 3000 /uL; Source Pleural Fluid LEFT LUNG; WBC Pleural Fluid (A) 945 /uL
--- NOTE | 2020-11-12 17:02 | XRay Report ---
XR chest 1V portable CLINICAL HISTORY: s/p left thoracentesis COMPARISON STUDY: Chest radiograph November 11, 2020. Chest CT November 01, 2020. FINDINGS: There is no pneumothorax following left thoracentesis. Pleural effusion has decreased in si ze. Residual pleural effusion with left lung airspace opacity is noted. IMPRESSION: 1. No pneumothorax following left thoracentesis. 2. Decrease in size of the left pleural effusion. Residual left pleural effusion with left lung airsp ying opacity. ACT 112: Negative or not required by law. Electronically signed by: Olayinka Spicer M.D. 11/12/2020 5:01 PM
[2020-11-12 17:10] LABS: Amylase Pleural Fluid 38 U/L; Glucose Pleural Fluid 22 mg/dl
[2020-11-12 17:17] LABS: LDH Pleural Fluid 1972 U/L; Total Protein Pleural Fluid 4.9 g/dl
[2020-11-12 17:35] LABS: Albumin Level 2.1 gm/dl (3.4-5.0); Total Protein 6.9 gm/dl (6.4-8.2)
[2020-11-12 17:47] LABS: Eosinophils, Fluid 0 %; Lymphocytes, Fluid 0 %; Mono,Macrophage,Mesothelial 6 %; Neutrophils, Fluid 94 %
--- NOTE | 2020-11-12 18:39 | CT Scan Report ---
CT chest diagnostic wo con CLINICAL HISTORY: left effusion vs atelectasis COMPARISON STUDY: November 01, 2020 CT DOSE: 945.04 mGy.cm TECHNIQUE: CT of the thorax was performed from the thoracic inlet to the lung bases. Images are revi ewed in the axial, sagittal, and coronal planes. IV contrast was not administered for this examinatio n. A dose lowering technique was utilized adhering to the principles of ALARA. FINDINGS: There is no axillary, supra clavicle or internal mammary lymphadenopathy seen. Innumerable mediastinal lymph nodes are enlarging in size and amount since recent prior study perform ed less than 2 weeks ago (for example recently seen subcarinal lymph node which was measured 0.5 cm i n short axis now appear enlarged, lobulated and measuring 1.2 cm in short axis). Redemonstration of c alcifications within subcarinal and left hilar lymph nodes. Thyroid: Imaged portions of the thyroid gland are normal in appearance. Thoracic aorta: The thoracic aorta is normal in course and caliber, noting standard 3 vessel arch brenda davida. Heart: Heart is normal in size. Interval development of mild pericardial effusion. Coronary calcifica tions are again seen. Stent of the left anterior descending artery is again demonstrated. Lungs and pleural spaces: Tracheobronchial tree is patent. Significant interval worsening of consolidative opacity of the left lung mostly affecting left lower lobe with few air bronchograms. Small left pleural effusion is seen. Interval prominence of lobulated collection within peripheral aspect of the left upper lobe which als o extend to visualized portion of the left major fissure. Interval development of the trace right pleural effusion associated with minimal atelectasis at depen dent portion of the right lung. Upper abdomen: Partially visualized upper abdominal viscera is within normal limits. Skeletal structures: Multilevel degenerative changes of the spine. There are a few ill-defined lesion s within thoracic spine. IMPRESSION: 1. Interval development of large consolidative opacity affecting left lung as detailed above and ass ociated with small left pleural effusion which appear to be loculated at the left upper lobe. There i s also associated worsening of mediastinal lymphadenopathy. Above-mentioned findings most likely repr esenting pneumonia. 2. Interval development of minimal pericardial effusion. 3. Questionable ill-defined lesions within thoracic spine. Differential diagnosis might include meta static disease or other etiology. Please correlate above-mentioned findings was prior history of raul gnancy. ACT 112: Negative or not required by law. The above report was generated using voice recognition software. It may contain grammatical, syntax o r spelling errors. Electronically signed by: Laura Espinoza DO 11/12/2020 6:37 PM
--- NOTE | 2020-11-12 19:10 | Hospitalist Progress Note ---
Date of Service November 12, 2020 Assessment & Plan (1) Acute respiratory failure with hypoxia: (2) Pleural effusion, left: Plan: ASSESSMENT AND PLAN: This is a 69-year-old male presents with shortness of breath. 1. Shortness of breath, mild fever, left pleural effusion. Empyema, large loculated left-sided pleural effusion --Status post thoracentesis left-sided: Suggestive of empyema Pleural fluid culture: Pending Blood cultures: Pending --Continue IV Zosyn, doxycycline Discussed with pulmonary service, recommend transfer to [facility] [address] for thoracic surgeon evaluation possible intervention cardiology evaluation Patient kindly accepted by Dr. Shukla --Patient informed, he is accepting of the plan of care Pulmonary service to reach out to family regarding update Per Dr. Carroll's notes: 2. CAD status post stent. hold aspirin for now in light of thoracentesis. Continue his home medication of beta cathy, and statin. 3. Hypertension. Continue his home medication of losartan, atenolol, amlodipine. 4. Hyperlipidemia, on statin. 5. Morbid obesity: Needs counseling. 6. Obstructive sleep apnea. 7. Elevated lft. Will follow repat labs. If any concern will get liver US. 7. Deep venous thrombosis prophylaxis, hold heparin subcutaneous Admission and Anticipated Discharge Date Admission Date: November 12, 2020 Subjective Follow-up for left pleural effusion, hypoxia etc. Status post thoracentesis, left-sided today Seen resting in bed, comfortable, on 3 L of nasal cannula States he feels okay, breathing improved No cough, chest pain, palpitations, dizziness No other symptoms Review of Systems Review of Systems: All noted and reviewed, negative except for above Physical Exam Physical Exam: General- oriented x 3, not in distress, speaks in sentences with no effort or accessory muscle use Eyes- anicteric Neck- no JVD Lungs-decreased breath sounds left mid to base, clear on the right, no wheezing Heart- normal rate, regular rhythm; no murmurs Abdomen- normal bowel sounds, nondistended, soft, nontender Extremities- no pretibial edema, no calf tenderness Neuro- alert, oriented x 3; no gross focal neurologic deficits Skin- warm & dry Results & Data Results & Data ([facility]) Vital Signs (Past 12 Hours) Vital Signs Temp Pulse Resp BP BP Pulse Ox 11/12/20 15:10 37.3 C 72 20 160/81 H 95 11/12/20 12:01 36.7 C 66 22 145/90 H 96 11/12/20 08:11 36.8 C 75 20 177/113 H 177/99 H 97 all noted and reviewed including below
--- NOTE | 2020-11-12 19:11 | Discharge Summary ---
Date of Service November 12, 2020 Admission HPI Per Admitting Provider HISTORY OF PRESENT ILLNESS: This 69-year-old male with past medical history significant for CAD, status post stent, hypertension, morbid obesity, osteoarthritis, hyperlipidemia, obstructive sleep apnea, GERD, presents with shortness of breath. The patient has been to the ER couple of times. This is the third time he is in the ER. He had CTA of the chest and CT abdomen and pelvis done on 11/01/[address] angiogram of abdominal aorta and its branches, 6 mm pleural based nodule is noted in the right lung base and he was otherwise unremarkable. A chest x-ray done on 11/04/2020 showing small left pleural effusion, progressively worsening left lung base opacities suggestive of atelectasis versus pneumonia .And he followed up with PCP. He had a CT angiogram was done on 11/07/2020 as out patient. Again there was no PE, but showing moderate left pleural effusion with loculations. A few loculations demonstrated higher than fluid attenuation concerning for debris, mildly enlarged thoracic lymph nodes, a few lung nodules measuring up to 7 mm was documented. The patient had a course of Z-JORDY, currently on doxycycline. Today, he has a small temperature spike and his shortness of breath is not getting better. That is the reason he came to the ER. He also has chest pain. Chest pain is more with deep breath.He is coughing, once in a while brings up whitish phlegm. No headache, no blurred visions, no earache, no runny nose, no sore throat, no nausea, no abdominal pain. Appetite is down, because of feeling of bloating of the stomach, but currently he is feeling somewhat hungry. Normal bowel and bladder movements. Ambulating okay. Currently hemodynamically stable. Admission Exam Per Admitting Provider GENERAL: The patient is of moderate build, not in acute distress. VITAL SIGNS: Temperature 36.9, pulse 85, respiratory rate 24, blood pressure 178/99, oxygen 97% on nasal cannula. HEENT: Pupils equal, round and reactive to light. Oral mucosa moist. NECK: No JVD, no neck masses. HEART: S1 and S2 heard. Regular rate and rhythm. No murmur, no gallop. RESPIRATORY SYSTEM: Normal AP diameter. No accessory muscle use. No wheezing, no crackles. Diminished breath sounds in the left lung base. ABDOMEN: Soft, bowel sounds present, nontender, no distention. CENTRAL NERVOUS SYSTEM: Cranial nerves II-XII grossly intact, nonfocal. EXTREMITIES: No edema, no erythema. Principal Diagnosis Left-sided pleural effusion, loculated Empyema Hypoxia Discharge Exam General- oriented x 3, not in distress, speaks in sentences with no effort or accessory muscle use Eyes- anicteric Neck- no JVD Lungs-decreased breath sounds left mid to base, clear on the right, no wheezing Heart- normal rate, regular rhythm; no murmurs Abdomen- normal bowel sounds, nondistended, soft, nontender Extremities- no pretibial edema, no calf tenderness Neuro- alert, oriented x 3; no gross focal neurologic deficits Skin- warm & dry Discharge Data Allergies Allergy/AdvReac Type Severity Reaction Status Date / Time fentanyl Allergy hives, Unverified 11/04/20 16:18 swelling Consultations 11/12/20 00:00 ED Decision to Admit Stat 11/12/20 08:00 Consult Pulmonology Routine Ordered Studies 11/12/20 07:26 US liver Routine COMPARISON STUDY: Abdominal CT dated 11/01/2020. TECHNIQUE: Real-time, grayscale, and color flow sonography of the right upper quadrant of the abdomen was performed. Images are reviewed in the transverse and longitudinal planes. FINDINGS: Liver: The liver is heterogeneous in echotexture noting nodularity of the surface contour. Increased echotexture suggesting steatosis. There is no intrahepatic biliary ductal dilatation. The main portal vein is patent. Gallbladder: The gallbladder is normal in appearance. No gallstones are identified. There is no gallbladder wall thickening or pericholecystic fluid. A sonographic Candelario's sign is reportedly absent. The common bile duct measures up to 0.4 cm in diameter. Pancreas: Visualized portions of the pancreatic head and body are normal in appearance. Right kidney: Survey images of the right kidney demonstrate normal size and echotexture. There is no hydronephrosis. Ascites: None. IMPRESSION: 1. Heterogeneous liver with evidence of steatosis. Nodularity of the hepatic surface contour suggests early change of cirrhosis. 2. No gallstones are identified. 11/12/20 14:59 US point of care ultrasound Urgent 11/12/20 15:15 US point of care ultrasound Urgent 11/12/20 17:27 CT chest diagnostic wo con Urgent CT DOSE: 945.04 mGy.cm TECHNIQUE: CT of the thorax was performed from the thoracic inlet to the lung bases. Images are reviewed in the axial, sagittal, and coronal planes. IV contrast was not administered for this examination. A dose lowering technique was utilized adhering to the principles of ALARA. FINDINGS: There is no axillary, supra clavicle or internal mammary lymphadenopathy seen. Innumerable mediastinal lymph nodes are enlarging in size and amount since recent prior study performed less than 2 weeks ago (for example recently seen subcarinal lymph node which was measured 0.5 cm in short axis now appear enlarged, lobulated and measuring 1.2 cm in short axis). Redemonstration of calcifications within subcarinal and left hilar lymph nodes. Thyroid: Imaged portions of the thyroid gland are normal in appearance. Thoracic aorta: The thoracic aorta is normal in course and caliber, noting standard 3 vessel arch anatomy. Heart: Heart is normal in size. Interval development of mild pericardial effusion. Coronary calcifications are again seen. Stent of the left anterior descending artery is again demonstrated. Lungs and pleural spaces: Tracheobronchial tree is patent. Significant interval worsening of consolidative opacity of the left lung mostly affecting left lower lobe with few air bronchograms. Small left pleural effusion is seen. Interval prominence of lobulated collection within peripheral aspect of the left upper lobe which also extend to visualized portion of the left major fissure. Interval development of the trace right pleural effusion associated with minimal atelectasis at dependent portion of the right lung. Upper abdomen: Partially visualized upper abdominal viscera is within normal limits. Skeletal structures: Multilevel degenerative changes of the spine. There are a few ill-defined lesions within thoracic spine. IMPRESSION: 1. Interval development of large consolidative opacity affecting left lung as detailed above and associated with small left pleural effusion which appear to be loculated at the left upper lobe. There is also associated worsening of mediastinal lymphadenopathy. Above-mentioned findings most likely representing pneumonia. 2. Interval development of minimal pericardial effusion. 3. Questionable ill-defined lesions within thoracic spine. Differential diagnosis might include metastatic disease or other etiology. Please correlate above-mentioned findings was prior history of malignancy. Hospital Course (1) Acute respiratory failure with hypoxia: (2) Pleural effusion, left: ASSESSMENT AND PLAN: This is a 69-year-old male presents with shortness of breath. 1. Shortness of breath, mild fever, left pleural effusion. Empyema, large loculated left-sided pleural effusion --Status post thoracentesis left-sided: Suggestive of empyema Pleural fluid culture: Pending Blood cultures: Pending --Continue IV Zosyn, doxycycline Discussed with pulmonary service, recommend transfer to [facility] for thoracic surgeon evaluation possible intervention cardiology evaluation Patient kindly accepted by Dr. Shukla --Patient informed, he is accepting of the plan of care Pulmonary service to reach out to family regarding update Per Dr. Carroll's notes: 2. CAD status post stent. hold aspirin for now in light of thoracentesis. Continue his home medication of beta cathy, and statin. 3. Hypertension. Continue his home medication of losartan, atenolol, amlodipine. 4. Hyperlipidemia, on statin. 5. Morbid obesity: Needs counseling. 6. Obstructive sleep apnea. 7. Elevated lft. Will follow repat labs. If any concern will get liver US. 7. Deep venous thrombosis prophylaxis, hold heparin subcutaneous Total Time Total Time Spent Total Time Spent (In Minutes): 60 minutes Discharge Plan Discharge Items Patient Disposition: Transfer Acute Care Hospital Reason For Visit: SHORTNESS OF BREATH Discharge Diagnosis: Loculated left-sided pleural effusion Empyema Hypoxia Activity: As commented below Activity Comment: Bedrest for now Non-emergency contact: Primary Care Provider Call non-emergency contact if: you have any medication questions and your symptoms worsen Follow-up/Referrals: Sharon Hammonds DO [Primary Care Provider] - Diet: Heart Healthy Addtl Attending Provider Instructions: Please refer to accompanying hospital discharge summary for further details. Pending Studies at Discharge: Yes Studies:: Pleural fluid studies including culture Stand-Alone Forms: My [facility] Skilled Items Patient informed of condition?: Yes DNR: No Discharge Level of Care: Other Communicable Disease: No Discharge Prognosis: Stable Lines: Peripheral IV Urinary Catheter: No Medications and DC Order Prescriptions: New doxycycline hyclate 100 mg Capsule 100 mg PO BID Qty: 14 RF: 0 Continued losartan 50 mg tablet 50 mg PO BID RF: 0 atenolol 25 mg tablet 25 mg PO BID RF: 0 amlodipine 5 mg tablet 5 mg PO QAM RF: 0 omeprazole 20 mg capsule,delayed release(DR/EC) 20 mg PO QAM RF: 0 coenzyme Q10 [CoQ-10] 100 mg Capsule 100 mg PO QAM RF: 0 glucosamine-chondroitin [Osteo Bi-Flex] 250-200 mg Tablet 2 tab PO QAM RF: 0 rosuvastatin 40 mg tablet 20 mg PO QAM RF: 0 cholecalciferol (vitamin D3) [Vitamin D3] 25 mcg (1,000 unit) Tablet 25 mcg PO QAM RF: 0 carisoprodol [Soma] 250 mg tablet 250 mg PO QID PRN (Reason: muscle pain) Qty: 14 RF: 0 Discontinued aspirin 81 mg Tablet,Delayed Release (Dr/Ec) 81 mg PO QAM RF: 0 ibuprofen 200 mg Tablet 600 mg PO Q6H PRN (Reason: Pain) RF: 0 Discharge Orders: Discharge Order (Routine); Ordered 11/12/20 Ordered By: Alberto Casey Admission Data Admit Date/Time: 11/12/20 01:07 Attending Provider: Alberto Casey Admit Provider: Kelvin Carroll Primary Care Provider: Sharon Hammonds Other Providers: Kelvin Carroll [place]
--- NOTE | 2020-11-16 02:58 | Procedure Note ---
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 Appropriate imaging studies were reviewed prior to the procedure. Patient was placed in a seated position and limited thoracic ultrasound was performed of the left chest. See separate imaging. The site appropriate for thoracentesis was selected. The skin was prepped and draped in normal sterile fashion. Lidocaine was used for local analgesia. Fluid was aspirated via the finder needle. A small skin elena was made with the scalpel and the catheter over the needle apparatus was advanced over the rib into the pleural space. Using the syringe one-way valve system, a total of 600 mL's of yellow fluid was removed. Procedure was terminated due to lack of flow. The catheter was removed and observed to be intact. A sterile dressing was applied. Post procedure chest x-ray was ordered. Fluid was sent for LDH, total protein, cell count, glucose, pH, cytology, AFB cultures, gram stain and culture and fungal cultures. The patient tolerated the procedure well without obvious complication. Coding CPT Codes Pulmonary/Thoracic - Pulmonary and Thoracic: 74422 Thoracentesis w imaging ([id number]) [facility] [place]Charges) Pulmonary/Thoracic Procedure 1: Pulmonary and Thoracic: 12284 Thoracentesis w imaging
== END 2020-11-12 21:10 | disposition short-term general hospital (02) | DRG 177 ==
LOC: ED 21:16 → OBSVTOIN 11-12 01:07 → 2N 11-12 01:07 → INTOOBSV 11-12 01:07 → 2N 11-12 02:51